=== PATIENT | male | born 2000 | race Caucasian/White ===

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

== ENCOUNTER 2023-03-01 10:33 | Outpatient (CLI) | payer OTHER | END 2023-03-01 10:34 | disposition home or self-care (01) | LOC: LAB 10:33 | PROVIDERS: ATTEND Internal Medicine Hematology & Oncology | DX: D50.8 Other iron deficiency anemias (principal); I10 Essential (primary) hypertension; E11.9 Type 2 diabetes mellitus without complications; E78.2 Mixed hyperlipidemia; E03.8 Other specified hypothyroidism; D68.8 Other specified coagulation defects; N39.0 Urinary tract infection, site not specified; R80.9 Proteinuria, unspecified ==